=== PATIENT | male | born 1945 | race Caucasian/White ===

== ENCOUNTER 2016-11-12 14:49 | Emergency (ER) | payer MEDICARE, OTHER ==
[~2016-11-12] VITALS: Ht 175.3 cm; Wt 83.5 kg
[~2016-11-12 14:49] MED LIST: ASPI325T4 PO; ASPI81TA2 PO; ATOR20TA58 PO; DEXT5TAB27 PO; LISI-338 PO; METO25TA9 PO; TICA90TA PO
[2016-11-12 15:09] VITALS: BP 115/72
[2016-11-12] MEDS ORDERED: CEPH-264 PO (15:51)
--- NOTE | 2016-11-12 15:52 | PHYS DOC ---
Past Medical History Past Medical History: Arthritis, [place], Stroke Past Surgical History: Angioplasty, Appendectomy, Tonsillectomy, Other Additional Past Surgical Histo: 3 coronary stents, sinus surgery, cataract Smoking: Quit Greater Than 1 Year Alcohol Use: Rarely Drug Use: None Adult General Chief Complaint Chief Complaint: FACE PROBLEM HPI HPI Patient is a 70 year old male who presents with abscess near the left eye for 3 -4 days. He saw his PCP yesterday and was prescribed Bactrim. He has taken 3 doses of the antibiotic. He awoke today and noticed swelling below the left eye. He called his doctor and was told to come to the emergency department to have imaging done. He denies any change in his vision, drainage from the wound or eye, or pain with eye movements. His PCP is Dr. Bran. Review of Systems Review of Systems Constitutional: Denies fever or chills. [] Eyes: Denies change in visual acuity, redness, or eye pain. Denies eye drainage. Reports swelling below the left eye. Musculoskeletal: Denies back pain or joint pain. [] Integument: Denies rash or skin lesions. Reports abscess lateral to the left eye with redness and swelling below the left eye. Neurologic: Denies headache, focal weakness or sensory changes. [] Allergies Allergies Allergies Coded Allergies Type Severity Reaction Last Updated Verified No Known Drug Allergies 06/26/14 No Physical Exam Physical Exam Constitutional: Well developed, well nourished, no acute distress, non-toxic appearance. [] HENT: Normocephalic, atraumatic, bilateral external ears normal, oropharynx moist, no oral exudates, nose normal. [] Eyes: PERRLA, EOMI, conjunctiva normal, no discharge. There is mild erythema and edema below the left lower eyelid that appears to be dependent edema. There is no warmth, induration, or tenderness with palpation. No pain with eye movement. Neck: Normal range of motion, no tenderness, supple, no stridor. [] Skin: Warm, dry. There is a 2cm indurated abscess without spontaneous drainage with mild surrounding erythema and tenderness. Neurologic: Alert and oriented X 3, normal motor function, normal sensory function, no focal deficits noted. [] Psychologic: Affect normal, judgement normal, mood normal. [] Current Patient Data Vital Signs Vital Signs Date Time Temp Pulse Resp B/P Pulse Ox O2 Delivery O2 Flow Rate FiO2 11/12/16 15:09 98.0 74 18 96 Room Air 98.0 EKG EKG [] Radiology/Procedures Radiology/Procedures [] Course & Med Decision Making Course & Med Decision Making Pertinent Labs and Imaging studies reviewed. (See chart for details) Patient presents with abscess lateral to the left eye for 3-4 days. He was sent to the emergency department by his primary care doctor with suspicion for orbital cellulitis due to swelling that developed under the eye. His doctor referred him without examination today. On my exam, the swelling appears to be a dependent edema below the left lower eyelid. There is no change in vision. Patient does not have any pain with movement of the eye. The patient was also seen and examined by Dr. Sahni, who agrees with evaluation. The patient is already taking Bactrim. We will add Keflex in addition to the Bactrim. He is instructed to apply warm compresses. Follow-up with PCP in 2 days. Strict return precautions were discussed. Patient verbalizes understanding and agrees with plan. Dragon Disclaimer Dragon Disclaimer This electronic medical record was generated, in whole or in part, using a voice recognition dictation system. Departure Departure Impression: Primary Impression: Facial abscess Disposition: 01 HOME, SELF-CARE Condition: STABLE Referrals: CHARLES BRAN MD (PCP) Patient Instructions: Abscess, [id number] Additional Instructions: Please apply warm compresses to your wound. Please continue taking the antibiotic prescribed by your doctor and begin taking the antibiotic prescribed today as well. Please follow up with your doctor for recheck of your wound in 2 days. Return to the emergency department if you have pain with movement of your eye, change in your vision, worsening of your wound, or other new or concerning symptoms. Scripts Cephalexin (Keflex)500 Mg Capsule1 Cap PO BID #20 CAP Prov:KIP OLIVEIRA 11/12/16 KIP OLIVEIRA Nov 12, 2016 15:52
== END 2016-11-12 15:58 | disposition home or self-care (01) ==
LOC: ER 14:49
DX: L02.01 Cutaneous abscess of face (principal); F17.200 Nicotine dependence, unspecified, uncomplicated; I25.2 Old myocardial infarction; M19.90 Unspecified osteoarthritis, unspecified site; Z86.73 Personal history of transient ischemic attack (TIA), and cerebral infarction without residual deficits; Z98.49 Cataract extraction status, unspecified eye; Z95.5 Presence of coronary angioplasty implant and graft; Z90.49 Acquired absence of other specified parts of digestive tract
CPT/HCPCS: 99283

== ENCOUNTER → 2017-01-26 | Outpatient (CLI) | payer MEDICARE, OTHER ==
[~2017-01-26] MED LIST changes: +CEPH-264 PO
--- NOTE | 2017-01-26 11:37 | CARD ---
APPROVED REPORT EXAM: Two-dimensional and M-mode echocardiogram with Doppler and color Doppler. Other Information Quality : GoodHR: 68bpm Rhythm : NSR INDICATION ST Elevation (STEMI) myocardial infarction of unspecified site RISK FACTORS Hyperlipidemia Family History Smoking 2D DIMENSIONS RVDd3.2 (2.9-3.5cm)Left Atrium(2D)3.8 (1.6-4.0cm) IVSd1.0 (0.7-1.1cm)Aortic Root(2D)2.9 (2.0-3.7cm) LVDd3.9 (3.9-5.9cm)LVOT Diameter2.2 (1.8-2.4cm) PWd1.0 (0.7-1.1cm)LVDs2.9 (2.5-4.0cm) FS (%) 26.0 %SV35.0 ml LVEF(%)51.7 (>50%) Aortic Valve AoV Peak Min.109.0cm/sAoV VTI22.3cm AO Peak GR.4.8mmHgLVOT Peak Min.100.8cm/s AO Mean GR.2mmHgAVA (VMAX)3.38cm2 Mitral Valve MV E Beuxhcyt90.2cm/sMV E Peak Gr.2mmHg MV DECEL [id number] A Kgzgwivk73.0cm/s MV E Mean Gr.1mmHgE/A Ratio0.8 MV A [id number] Pulmonary Valve PV Peak Oaxggpwf12.6cm/s Pulmonary Vein S1 Ktprwiwf41.1cm/sD2 Upuqkhue49.5cm/s PVa [id number] LEFT VENTRICLE The left ventricle is normal size. There is normal left ventricular wall thickness. The left ventricu lar systolic function is normal. The Ejection Fraction is 50-55%. There is normal LV segmental wall m otion. Transmitral Doppler flow pattern is Grade I-abnormal relaxation pattern. RIGHT VENTRICLE The right ventricle is normal size. There is normal right ventricular wall thickness. The right ventr icular systolic function is normal. ATRIA The left atrium size is normal. The right atrium size is normal. The interatrial septum is intact wit h no evidence for an atrial septal defect or patent foramen ovale as noted on 2-D or Doppler imaging. AORTIC VALVE The aortic valve is mildly thickened. The aortic valve is trileaflet. Doppler and Color Flow revealed no significant aortic regurgitation. There is no significant aortic valvular stenosis. MITRAL VALVE The mitral valve leaflets are thickened. There is no evidence of mitral valve prolapse. There is no m itral valve stenosis. Doppler and Color Flow revealed no mitral valve regurgitation noted. TRICUSPID VALVE The tricuspid valve is normal in structure and function. Doppler and Color Flow revealed no tricuspid valve regurgitation noted. PULMONIC VALVE Doppler and Color Flow revealed mild pulmonic valvular regurgitation. There is no pulmonic valvular s tenosis. GREAT VESSELS The aortic root is normal in size. The ascending aorta is normal in size. The pulmonary artery is nor mal. The IVC is normal in size and collapses >50% with inspiration. PERICARDIAL EFFUSION There is no evidence of significant pericardial effusion. Critical Notification Critical Value: No <Conclusion> The left ventricular systolic function is normal. The Ejection Fraction is 50-55%. There is normal LV segmental wall motion. Transmitral Doppler flow pattern is Grade I-abnormal relaxation pattern. There is no evidence of significant pericardial effusion.
== END | disposition home or self-care (01) ==
LOC: ECHO 09:23
PROVIDERS: ATTEND Internal Medicine Cardiovascular Disease
DX: I21.3 ST elevation (STEMI) myocardial infarction of unspecified site (principal); I37.1 Nonrheumatic pulmonary valve insufficiency
CPT/HCPCS: 93306

== ENCOUNTER 2017-02-01 21:36 | Inpatient (IN) | payer MEDICARE, OTHER ==
[~2017-02-01] VITALS: Ht 175.3 cm; Wt 79.1 kg
[2017-02-01] MEDS ORDERED: methylPREDNISolone SOD SUCC PF 125 MG/2 ML VIAL. IV ONE (22:00)
[2017-02-01] MEDS ORDERED: IPRATRPIUM/ALBUTEROL 0.5/2.5MG 3 ML NEBU. NEB ONE (22:00)
--- NOTE | 2017-02-01 22:01 | PHYS DOC ---
Past Medical History Past Medical History: Arthritis, [place], Stroke Past Surgical History: Angioplasty, Appendectomy, Tonsillectomy, Other Additional Past Surgical Histo: 3 coronary stents, sinus surgery, cataract Alcohol Use: Rarely Drug Use: None Adult General Chief Complaint Chief Complaint: SHORTNESS OF BREATH HPI HPI 71-year-old male presenting to the emergency department with a productive cough congestion chills and worsening shortness of breath over the past 4 days. He is been trying qmbg-pgc-[id number] medications without relief. Location lungs. Duration intermittent. No alleviating factors. He has a history of coronary artery disease. He was hypoxic in triage and placed on nasal cannula. Review of systems is negative for abdominal pain nausea vomiting diaphoresis or chest pain. All other review of systems is negative unless otherwise noted in history of present illness. Review of Systems Review of Systems SEE ABOVE. Current Medications Current Medications Current Medications Medications (Trade) Dose Ordered Sig/Escobar Start Time Stop Time Status Last Admin Dose Admin Acetaminophen (Tylenol) 650 mg 1X ONCE 02/01/17 23:15 02/01/17 23:16 DC 02/01/17 23:15 650 MG Albuterol/ Ipratropium (Duoneb) 3 ml 1X ONCE 02/01/17 22:00 02/01/17 22:01 DC 02/01/17 22:05 3 ML Azithromycin 250 ml @ 250 mls/hr 1X ONCE 02/01/17 23:30 02/02/17 00:29 02/01/17 23:17 250 MLS/HR Ceftriaxone Sodium (Rocephin 1gm Ivpb For Omni) 50 ml @ 100 mls/hr 1X ONCE 02/01/17 23:00 02/01/17 23:29 DC 02/01/17 23:16 100 MLS/HR Methylprednisolone Sodium Succinate 125 mg 125 mg 1X ONCE 02/01/17 22:00 02/01/17 22:01 DC 02/01/17 23:16 125 MG Oseltamivir Phosphate (Tamiflu) 75 mg 1X ONCE 02/01/17 23:30 02/01/17 23:31 UNV Sodium Chloride 1,000 ml @ 1,000 mls/hr 1X ONCE 02/01/17 22:45 02/01/17 23:44 02/01/17 23:17 1,000 MLS/HR Allergies Allergies Allergies Coded Allergies Type Severity Reaction Last Updated Verified No Known Drug Allergies 06/26/14 No Physical Exam Physical Exam Constitutional: Well developed, well nourished, pt has mildly increased work of breathing, non-toxic appearance. HENT: Normocephalic, atraumatic, bilateral external ears normal, oropharynx moist, no oral exudates, nose normal. [] Eyes: PERRLA, EOMI, conjunctiva normal, no discharge. [] Neck: Normal range of motion, no tenderness, supple, no stridor. Cardiovascular:Heart rate regular rhythm, no murmur [] Lungs & Thorax: Patient has wheezing on the left more than the right. Abdomen: Bowel sounds normal, soft, no tenderness, no masses, no pulsatile masses. Skin: Warm, dry, no erythema, no rash. [] Back: No tenderness, no CVA tenderness. Extremities: No tenderness, no cyanosis, no clubbing, ROM intact, no edema. [] Neurologic: Alert and oriented X 3, normal motor function, normal sensory function, no focal deficits noted. [] Psychologic: Affect normal, judgement normal, mood normal. Current Patient Data Vital Signs Vital Signs Date Time Temp Pulse Resp B/P Pulse Ox O2 Delivery O2 Flow Rate FiO2 02/01/17 22:05 92 Nasal Cannula 2.0 02/01/17 21:50 100.5 129 22 148/71 100.5 Lab Values Laboratory Tests Test 02/01/17 22:05 02/01/17 23:01 White Blood Count 14.0x10^3/uL (4.0-11.0) H Red Blood Count 4.65x10^6/uL (4.30-5.70) Hemoglobin 13.6g/dL (13.0-17.5) Hematocrit 40.7% (39.0-53.0) Mean Corpuscular Volume 88fL (79-100) Mean Corpuscular Hemoglobin 29pg (25-35) Mean Corpuscular Hemoglobin Concent 33g/dL (31-37) Red Cell Distribution Width 14.0% (11.5-14.5) Platelet Count 215x10^3/uL (140-400) Neutrophils (%) (Auto) 91% (31-73) H Lymphocytes (%) (Auto) 4% (24-48) L Monocytes (%) (Auto) 4% (0-9) Eosinophils (%) (Auto) 0% (0-3) Basophils (%) (Auto) 0% (0-3) Neutrophils # (Auto) 12.7x10^3uL (1.8-7.7) H Lymphocytes # (Auto) 0.6x10^3/uL (1.0-4.8) L Monocytes # (Auto) 0.6x10^3/uL (0.0-1.1) Eosinophils # (Auto) 0.1x10^3/uL (0.0-0.7) Basophils # (Auto) 0.0x10^3/uL (0.0-0.2) Segmented Neutrophils % 74% (35-66) H Band Neutrophils % 22% (0-9) H Lymphocytes % 1% (24-48) L Monocytes % 3% (0-10) Toxic Vacuolation Present Platelet Estimate Adequate (ADEQUATE) Sodium Level 136mmol/L (136-145) Potassium Level 3.9mmol/L (3.5-5.1) Chloride Level 101mmol/L (98-107) Carbon Dioxide Level 25mmol/L (21-32) Anion Gap 10 (6-14) Blood Urea Nitrogen 10mg/dL (8-26) Creatinine 0.9mg/dL (0.7-1.3) Estimated GFR (Cockcroft-Gault) 83.4 Glucose Level 131mg/dL (70-99) H Lactic Acid Level 1.1mmol/L (0.4-2.0) Calcium Level 8.4mg/dL (8.5-10.1) L Total Bilirubin 0.6mg/dL (0.2-1.0) Direct Bilirubin 0.1mg/dL (0.0-0.2) Aspartate Amino Transferase (AST) 22U/L (15-37) Alanine Aminotransferase (ALT) 20U/L (16-63) Alkaline Phosphatase 72U/L (46-116) Troponin I Quantitative < 0.017ng/mL (0.000-0.055) JV-Gwk-S-Type Natriuretic Peptide 72pg/mL (0-124) Total Protein 7.5g/dL (6.4-8.2) Albumin 3.5g/dL (3.4-5.0) Lipase 92U/L (73-393) Influenza Type A Antigen Positive (NEGATIVE) Influenza Type B Antigen Negative (NEGATIVE) Laboratory Tests 02/01/17 22:05 Laboratory Tests 02/01/17 22:05 EKG EKG [] Radiology/Procedures Radiology/Procedures Chest x-ray reviewed by myself compared to previous on 07/05 shows no obvious infiltrate or pneumothorax. Course & Med Decision Making Course & Med Decision Making Pertinent Labs and Imaging studies reviewed. (See chart for details) [] 81-year-old gentleman presenting to the emergency department with fevers chills and cough, diagnosed with influenza. He was hypoxic and tachicardic in our emergency department. He was given nebulizer which improved his symptoms mildly however he remained hypoxic. I treated him with antibiotics, steroids and influenza here in the emergency department and subsequent admitted to him to our hospitalist service Doctor Mustapha excepted the patient at approximately 11:30 at which point the patient's care was transferred. Dragon Disclaimer Dragon Disclaimer This electronic medical record was generated, in whole or in part, using a voice recognition dictation system. Departure Departure Impression: Primary Impression: Influenza A Additional Impressions: Hypoxia Tachycardia Disposition: ADMITTED INPATIENT Admitting Physician: Denita Luciano Condition: STABLE Referrals: CHARLES BRAN MD (PCP) Problem Qualifiers ASHOK NATHAN MD Feb 01, 2017 22:01
[2017-02-01 22:15] LABS: BASO % 0 % (0-3); EOS % 0 % (0-3); HEMATOCRIT 40.7 % (39.0-53.0); HEMOGLOBIN 13.6 g/dL (13.0-17.5); LYMPH # 0.6 x10^3/uL (1.0-4.8); LYMPH % 4 % (24-48); MEAN CORPUSCULAR HEMOGLOBIN 29 pg (25-35); MEAN CORPUSCULAR HGB CONC 33 g/dL (31-37); MEAN CORPUSCULAR VOLUME 88 fL (79-100); MONO % 4 % (0-9); NEUT % 91 % (31-73); PLATELET COUNT 215 x10^3/uL (140-400); RED BLOOD COUNT 4.65 x10^6/uL (4.30-5.70)
[2017-02-01 22:26] LABS: CALCIUM 8.4 mg/dL (8.5-10.1); CREATININE 0.9 mg/dL (0.7-1.3); GFR 83.4; POTASSIUM 3.9 mmol/L (3.5-5.1)
[2017-02-01 22:32] LABS: ALBUMIN 3.5 g/dL (3.4-5.0); DIRECT BILIRUBIN 0.1 mg/dL (0.0-0.2); TOTAL BILIRUBIN 0.6 mg/dL (0.2-1.0); TOTAL PROTEIN 7.5 g/dL (6.4-8.2)
[2017-02-01] MEDS ORDERED: IV NORMAL SALINE 1000ML BAG 1,000 ML IV ONE (22:45)
[2017-02-01 22:57] LABS: PLT ESTIMATE ADEQUATE (ADEQUATE)
[2017-02-01 22:58] LABS: TOXIC VACUOLATION PRESENT
[2017-02-01] MEDS ORDERED: CEFTRIAXONE 1GM IVPB FOR OMNI 50 ML IV ONE (23:00)
[2017-02-01] MEDS ORDERED: ACETAMINOPHEN 325 MG TABLET. PO ONE (23:15)
[2017-02-01] MEDS: AZITHRMYCN 500MG IVPB FOR OMNI 250 ML IV ONE ×2 (23:17→23:30)
[2017-02-01 23:31] LABS: OBC FLU VALID
[2017-02-01] MEDS ORDERED: OSELTAMIVIR 75 MG CAPSULE PO ONE (23:45)
--- NOTE | 2017-02-01 23:59 | ACF ---
Admission Forms Criteria TELEMETRY CARE Telemetry Admission Guidelines (Place 'X' for any and all applicable criteria): Admission to telemetry [A] may be indicated for ANY ONE of the following(1)(2)(3 )(4)(5): [X]I. Cardiac disease, including ANY ONE of the following (9)(10)(11)(12)(13 ): [ ]a) Postacute MO [ ]b) Low-risk patients with ST-segment elevation MO who have undergone successful percutaneous coronary intervention [ ]c) Unstable angina [ ]d) Suspected MO (until it is ruled out) [ ]e) Post cardiac surgery (first 48 to 72 hours unless complications occur) [X]f) Acute arrhythmias (including significant tachycardia or bradycardia) [B] [ ]g) Firing of an implantable cardioverter defibrillator [C] [ ]h) Suspected pacemaker or implantable cardioverter defibrillator malfunction (10) [ ]i) New administration or adjustment of an antiarrhythmic drug [D ] [ ]j) Child admitted for acute congestive heart failure [ ]j) Long QT syndrome [ ]k) Advanced heart block (eg, second-degree Mobitz type II, third- degree heart block) [ ]l) Acute myocarditis or pericarditis [ ]m) Short-term (ambulatory or inpatient) monitoring after a cardiac procedure as indicated by ANY ONE of the following [E]: [ ]i) Electrophysiologic studies [ ]ii) Percutaneous coronary intervention with stent placement [ ]iii) Pacemaker placement with cardiac conduction defect [ ]iv) Implantable cardiac defibrillator placement [ ]II. Drug overdose or poisoning with substance that causes arrhythmias or QT prolongation (eg, phenothiazines, sympathomimetic agents, cyclic antidepressants, digitalis, antiarrhythmic drugs)(15) [ ]III. Short-term (ambulatory or inpatient) monitoring after therapeutic or diagnostic procedure requiring conscious sedation or anesthesia (eg, endoscopy, elective cardioversion) [ ]IV. Acute cerebrovascular even[F](18) [ ]V. Massive blood transfusion (eg, at least 10 units of packed red blood cells in 24 hours) [ ]. Variceal bleeding after endoscopy, sclerotherapy, or IV vasopressin [ ]VII. Uncorrected electrolyte abnormalities associated with an increased risk of dangerous arrhythmia [G]; examples include [ ]a) Hyperkalemia with attributable ECG changes [ ]b) Potassium greater than 6.5 mmol/L (mEq/L) in a patient without history of chronic renal disease [ ]c) Prolonged QT attributed to hypokalemia, hypomagnesemia, or hypocalcemia [ ]VIII.Unexplained syncope or other neurologic event suspected of being due to arrhythmia due to a finding that increases risk; examples include(19)(20)(21): [ ]a) High-risk ECG findings (eg, bifascicular block, bradycardia, abnormal QT interval, ventricular pre- excitation) [ ]b) History of previous syncope due to arrhythmia [ ]c) Abnormal ventricular function (eg, reduced ejection fraction ) [ ]d) Exertional or supine syncope [ ]e) Concerning syncope characteristics (eg, sudden loss of consciousness without prodrome) [ ]f) Family history of sudden [ ]g) Use of arrhythmogenic medication [ ]h) Suspected cardiac ischemia [ ]i) Known channelopathy (eg, long QT syndrome, Brugada syndrome, or catecholaminergic paroxysmal ventricular tachycardia) [ ]j) Known structural heart disease (eg, hypertrophic cardiomyopathy , severe valvular disease) [ ]k) Palpitations preceding syncope The original [employer] content created by [employer] has been revised. The portions of the content which have been revised are identified through the use of italic text or in bold, and [employer] has neither reviewed nor approved the modified material. All other unmodified content is copyright [employer]. Please see references footnoted in the original [employer] edition 2016 Admission Criteria Met?: Yes PEPPER LAMA Feb 01, 2017 23:59
[2017-02-02] MEDS ORDERED: ONDANSETRON PF 4 MG/2 ML VIAL. IV PRN (00:15)
[2017-02-02] MEDS ORDERED: MORPHINE SULFATE 2 MG/ML DISP.SYRIN. IV PRN (00:15)
[2017-02-02 00:30] VITALS: BP 128/69
[2017-02-02 03:00] VITALS: BP 99/44
[2017-02-02] MEDS ORDERED: ACETAMINOPHEN 325 MG TABLET. PO PRN (03:00)
--- NOTE | 2017-02-02 06:15 | EKG ---
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
[2017-02-02 07:30] VITALS: BP 121/75
[2017-02-02] MEDS: IPRATRPIUM/ALBUTEROL 0.5/2.5MG 3 ML NEBU. NEB SCH ×2 (08:12→11:39)
[2017-02-02 08:58] VITALS: BP 121/75
[2017-02-02 08:59] VITALS: BP 121/75
[2017-02-02] MEDS ORDERED: OSELTAMIVIR 75 MG CAPSULE PO SCH (09:00)
--- NOTE | 2017-02-02 09:03 | RAD ---
AP portable chest radiograph 02/01/2017 Clinical History: Chest pain, shortness of breath and chills. An AP portable erect digital radiograph of the chest was obtained. Comparison study is dated 07/05/2014. The cardiac silhouette is normal in size. The thoracic aorta is mildly tortuous. Right basilar subsegmental atelectasis and/or infiltrate, left greater than right is seen. No pneumothorax or pleural effusion is seen. There is diffuse osteopenia of the visualized bony structures. Degenerative changes are seen involving the thoracic spine and both shoulders. Impression: Bibasilar subsegmental atelectasis and/or infiltrate.
[2017-02-02 10:36] VITALS: BP 136/82
--- NOTE | 2017-02-02 13:52 | SSS ---
ADMIT DATE: 02/02/2017 CHIEF COMPLAINT: Cough, weakness, and dizziness. HISTORY OF PRESENT ILLNESS: The patient is a pleasant elderly male who basically presented with prodrome of viral symptoms. He has been weak. He is coughing. He is dehydrated. He was admitted overnight for fluids. He was tested positive for influenza A. We started him on Tamiflu pack. This morning, he is doing better. He wants to go home. We plan to discharge. PAST MEDICAL HISTORY: Hyperlipidemia, hypertension, and anticoagulation. ALLERGIES: None. FAMILY HISTORY: Hypertension. SOCIAL HISTORY: Does not drink, smoke, or take drugs. MEDICATIONS: Reviewed. Please refer to the MRAD. REVIEW OF SYSTEMS: GENERAL: He complains of weakness. SKIN: No bruising, hair changes or rashes. EYES: No blurred, double, or loss of vision. NOSE AND THROAT: No history of nosebleeds, hoarseness, or sore throat. HEART: No history of palpitations, chest pain, or shortness of breath on exertion. LUNGS: He complains of cough. No hemoptysis, wheezing, or shortness of breath. GASTROINTESTINAL: Denies changes in appetite, nausea, vomiting, diarrhea, or constipation. GENITOURINARY: No history of frequency, urgency, hesitancy or nocturia. NEUROLOGIC: Denies history of numbness, tingling, tremor or weakness. PSYCHIATRIC: No history of panic, anxiety or depression. ENDOCRINE: No history of heat or cold intolerance, polyuria or polydipsia. EXTREMITIES: Denies muscle weakness, joint pain, pain on walking or stiffness. PHYSICAL EXAMINATION: VITAL SIGNS: Temperature afebrile, pulse 68, respirations 18, and blood pressure 144/90. GENERAL: He is alert, cooperative. HEART: Normal S1, S2. LUNGS: Clear. ABDOMEN: Soft, positive bowel sounds. EXTREMITIES: No edema. SKIN: No rashes. ENDOCRINE: No thyromegaly. LYMPHATICS: No cervical nodes. HEMATOPOIETIC: No bruising. LABORATORY DATA: White count is 14, hemoglobin 13, and platelets 215. Electrolytes are normal other than glucose of 131. His lactic acid level is normal at 1.1. Influenza testing was positive for influenza A. ASSESSMENT AND PLAN: Resolving influenza A. We will go ahead and send the patient home on Tamiflu pack and resume his home medications. DISPOSITION: Home. ACTIVITY: As tolerated. DIET: Low sodium. MEDICATIONS: Please see the MRAD. TOTAL TIME: 31 minutes. MISSY SIDDIQUI DO DR: TONO/sanjay JOB#: [id number] / [id number]
== END 2017-02-02 12:35 | disposition home or self-care (01) | DRG 189 ==
LOC: ER 21:36 → 5 NORTH 23:34 → OBSVTOIN 23:34
PROVIDERS: ADMIT Internal Medicine; ATTEND Internal Medicine
DX: J96.00 Acute respiratory failure, unspecified whether with hypoxia or hypercapnia (principal); R65.10 Systemic inflammatory response syndrome (SIRS) of non-infectious origin without acute organ dysfunction; J11.1 Influenza due to unidentified influenza virus with other respiratory manifestations; M19.90 Unspecified osteoarthritis, unspecified site; E78.5 Hyperlipidemia, unspecified; E86.0 Dehydration; I10 Essential (primary) hypertension; I25.10 Atherosclerotic heart disease of native coronary artery without angina pectoris; Z82.49 Family history of ischemic heart disease and other diseases of the circulatory system; Z86.73 Personal history of transient ischemic attack (TIA), and cerebral infarction without residual deficits; Z95.5 Presence of coronary angioplasty implant and graft; Z90.49 Acquired absence of other specified parts of digestive tract; I25.2 Old myocardial infarction
CPT/HCPCS: 36415; 71010; 80048; 80076; 83605; 83690; 83880; 84484; 85007; 85027; 87040; 87804; 93005; 94250; 94640; 94760; 96365; 96375; J0456; J0690; J2930; J7030; J7620; 99285-25

== ENCOUNTER 2017-02-03 23:31 | Emergency (ER) | payer MEDICARE, OTHER ==
[~2017-02-03] VITALS: Ht 175.3 cm; Wt 78.9 kg
[2017-02-04 00:43] LABS: BASO % 0 % (0-3); EOS % 0 % (0-3); HEMATOCRIT 39.9 % (39.0-53.0); HEMOGLOBIN 13.5 g/dL (13.0-17.5); LYMPH % 15 % (24-48); MEAN CORPUSCULAR HEMOGLOBIN 30 pg (25-35); MEAN CORPUSCULAR HGB CONC 34 g/dL (31-37); MEAN CORPUSCULAR VOLUME 87 fL (79-100); MONO % 10 % (0-9); NEUT % 75 % (31-73); PLATELET COUNT 269 x10^3/uL (140-400); RED BLOOD COUNT 4.56 x10^6/uL (4.30-5.70); RED CELL DISTRIBUTION WIDTH 13.8 % (11.5-14.5); WHITE BLOOD COUNT 13.5 x10^3/uL (4.0-11.0)
[2017-02-04 00:55] LABS: CALCIUM 8.5 mg/dL (8.5-10.1); GFR 73.9; POTASSIUM 3.9 mmol/L (3.5-5.1)
[2017-02-04 01:08] LABS: CKMB INDEX 1.8 % (0-4); CKMB MASS 2.8 ng/mL (0.0-3.6)
[2017-02-04] MEDS ORDERED: PROMETH/CODEINE 6.25/10MG 5 ML SYRUP. PO ONE (01:15)
[2017-02-04] MEDS ORDERED: ONDANSETRON PF 4 MG/2 ML VIAL. IV ONE (01:15)
[2017-02-04] MEDS ORDERED: ACETAMINOPHEN 325 MG TABLET. PO ONE (01:15)
[2017-02-04] MEDS ORDERED: MORPHINE SULFATE 4 MG/ML DISP.SYRIN. IV ONE (01:15)
[2017-02-04] MEDS ORDERED: HYDR-2678 PO (01:37)
[2017-02-04] MEDS ORDERED: PROM5SYR2 PO (01:37)
--- NOTE | 2017-02-04 01:37 | PHYS DOC ---
Past Medical History Past Medical History: Arthritis, [place], Stroke Past Surgical History: Angioplasty, Appendectomy, Tonsillectomy, Other Additional Past Surgical Histo: 3 coronary stents, sinus surgery, cataract Alcohol Use: Rarely Drug Use: None Adult General Chief Complaint Chief Complaint: CHEST PAIN HPI HPI Patient is a 71 year old gentleman who presents here today complaining of left- sided sharp chest pain with an aching sensation that occurs whenever he coughs. Patient reports that he was diagnosed with influenza A on Thursday in the emergency department and was sent home on Tamiflu and has medication at home to help him with the pain. Patient reports that the pain in his chest started earlier this evening. The pain is there only when he coughs. Patient is complaining of headache and congestion as well. Patient has a history significant for coronary artery disease. Patient has no hypertension diabetes CHF COPD liver longer kidney problems. According to the patient's he had a stent placed in June 2014. Shortly thereafter he had a stroke. Patient is on Remicade currently for rheumatoid arthritis. Patient is not allergic to any medications. Patient reports she's had some tactile fevers at home with no shakes or chills. Patient denies any rash. Patient reports he feels short of breath with exertion. Patient denies any sore throat. Patient reports she's had a nonproductive cough. Patient reports he has pleuritic-type chest pain whenever he coughs or takes a really deep breath in. Patient denies any nausea vomiting or diarrhea. Patient has any dysuria frequency or urgency. Patient complains of of generalized weakness. Patient's physical exam was remarkable for tenderness to palpation to his left anterior chest wall. Patient's reproducible tenderness in his left anterior chest wall whenever he takes a deep breath in or coughs while in the ER. Patient 's pulse ox has remained between 97-99% while in the ER on room air. Patient is not tachypneic. Patient appears comfortable laying in bed. She does lungs are clear without any wheezing rales or rhonchi. Patient's abdomen was soft nontender no rebound or guarding. Patient's workup in the ER was unremarkable. Patient patient had a chest x-ray which revealed no pneumonia which is what the patient was concerned about. Patient's labs were unremarkable did not reveal any elevation in his troponin, renal function, or electrolyte abnormalities. Labs were discussed with the patient. A/P #1 influenza A with pleuritic chest pain. Patient's chest pain is very atypical for cardiac etiology. Patient's EKG as well as troponin were within normal limits. Patient was given Phenergan with codeine as well as [place] to assist with his pain and discomfort. Patient was instructed to follow-up with his doctor within the next 1-2 days for reevaluation if his discomfort continues. Patient is extremely low risk for cardiac etiology of his chest pain. I do not think that the patient would benefit from inpatient hospitalization at this time as the patient does have influenza, he appears to be hemodynamically stable, he is pulse oxing well, his chest x-ray is clear, and he is on Tamiflu currently. Review of Systems Review of Systems [] Eyes: Denies change in visual acuity, redness, or eye pain [] All other review systems are negative except as documented in the history of present illness portion. Current Medications Current Medications Current Medications Medications (Trade) Dose Ordered Sig/Escobar Start Time Stop Time Status Last Admin Dose Admin Acetaminophen (Tylenol) 650 mg 1X ONCE 02/04/17 01:15 02/04/17 01:16 DC 02/04/17 01:12 650 MG Morphine Sulfate 4 mg 1X ONCE 02/04/17 01:15 02/04/17 01:16 DC 02/04/17 01:18 4 MG Ondansetron HCl (Zofran) 4 mg 1X ONCE 02/04/17 01:15 02/04/17 01:16 DC 02/04/17 01:12 4 MG Promethazine HCl/ Codeine (Phenergan With Codeine) 10 ml 1X ONCE 02/04/17 01:15 02/04/17 01:16 DC 02/04/17 01:12 10 ML Allergies Allergies Allergies Coded Allergies Type Severity Reaction Last Updated Verified No Known Drug Allergies 06/26/14 No Physical Exam Physical Exam Constitutional: Well developed, well nourished, no acute distress, non-toxic appearance. [] HENT: Normocephalic, atraumatic, bilateral external ears normal, oropharynx moist, no oral exudates, nose normal. [] Eyes: PERRLA, EOMI, conjunctiva normal, no discharge. [] Neck: Normal range of motion, no tenderness, supple, no stridor. [] Cardiovascular:Heart rate regular rhythm Lungs & Thorax: Bilateral breath sounds clear to auscultation [] Abdomen: Bowel sounds normal, soft, no tenderness, no masses, no pulsatile masses. [] Skin: Warm, dry, no erythema, no rash. [] Back: No tenderness, no CVA tenderness. [] Extremities: No tenderness, no cyanosis, no clubbing, ROM intact, no edema. [] Neurologic: Alert and oriented X 3, normal motor function Psychologic: Affect normal, judgement normal, mood normal. [] Current Patient Data Vital Signs Vital Signs Date Time Temp Pulse Resp B/P Pulse Ox O2 Delivery O2 Flow Rate FiO2 02/04/17 01:50 79 20 118/62 94 Room Air 02/03/17 23:39 98.3 98.3 Lab Values Laboratory Tests Test 02/04/17 00:00 White Blood Count 13.5x10^3/uL (4.0-11.0) H Red Blood Count 4.56x10^6/uL (4.30-5.70) Hemoglobin 13.5g/dL (13.0-17.5) Hematocrit 39.9% (39.0-53.0) Mean Corpuscular Volume 87fL (79-100) Mean Corpuscular Hemoglobin 30pg (25-35) Mean Corpuscular Hemoglobin Concent 34g/dL (31-37) Red Cell Distribution Width 13.8% (11.5-14.5) Platelet Count 269x10^3/uL (140-400) Neutrophils (%) (Auto) 75% (31-73) H Lymphocytes (%) (Auto) 15% (24-48) L Monocytes (%) (Auto) 10% (0-9) H Eosinophils (%) (Auto) 0% (0-3) Basophils (%) (Auto) 0% (0-3) Neutrophils # (Auto) 10.2x10^3uL (1.8-7.7) H Lymphocytes # (Auto) 2.0x10^3/uL (1.0-4.8) Monocytes # (Auto) 1.3x10^3/uL (0.0-1.1) H Eosinophils # (Auto) 0.0x10^3/uL (0.0-0.7) Basophils # (Auto) 0.0x10^3/uL (0.0-0.2) Sodium Level 141mmol/L (136-145) Potassium Level 3.9mmol/L (3.5-5.1) Chloride Level 101mmol/L (98-107) Carbon Dioxide Level 28mmol/L (21-32) Anion Gap 12 (6-14) Blood Urea Nitrogen 15mg/dL (8-26) Creatinine 1.0mg/dL (0.7-1.3) Estimated GFR (Cockcroft-Gault) 73.9 Glucose Level 91mg/dL (70-99) Calcium Level 8.5mg/dL (8.5-10.1) Creatine Kinase 158U/L (39-308) Creatine Kinase MB (Mass) 2.8ng/mL (0.0-3.6) Creatine Kinase MB Relative Index 1.8% (0-4) Troponin I Quantitative < 0.017ng/mL (0.000-0.055) RJ-Ksa-B-Type Natriuretic Peptide 279pg/mL (0-124) H Laboratory Tests 02/04/17 00:00 Laboratory Tests 02/04/17 00:00 EKG EKG [] Radiology/Procedures Radiology/Procedures [] Course & Med Decision Making Course & Med Decision Making Pertinent Labs and Imaging studies reviewed. (See chart for details) [] Dragon Disclaimer Dragon Disclaimer This electronic medical record was generated, in whole or in part, using a voice recognition dictation system. Departure Departure Impression: Primary Impression: Influenza A Additional Impressions: Chest wall pain Cough Disposition: 01 HOME, SELF-CARE Condition: IMPROVED Referrals: CHARLES BRAN MD (PCP) Patient Instructions: Chest Wall Pain, Influenza A (H1N1) Scripts Promethazine HCl/Codeine (Prometh-Codein 6.25-10 mg/5 ml)5 Ml Syrup10 Ml PO Q6HRS PRN COUGH #120 Prov:VENKATESH SPENCE MD 02/04/17 Hydrocodone/Acetaminophen (Lortab 5-325 mg Tablet)1 Each Tablet1 Tab PO PRN Q6HRS PRN PAIN #10 TAB Prov:VENKATESH SPENCE MD 02/04/17 Problem Qualifiers VENKATESH SPENCE MD Feb 04, 2017 01:37
[2017-02-04 01:50] VITALS: BP 118/62
--- NOTE | 2017-02-04 06:53 | EKG ---
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
--- NOTE | 2017-02-04 07:15 | RAD ---
Portable chest, 02/04/2017: History: Chest pain Comparison is made to a study from 02/01/2017. The heart size and pulmonary vascularity are normal. No pulmonary infiltrate is seen. There is no evidence of pleural fluid. IMPRESSION: No acute cardiopulmonary abnormality is detected.
== END 2017-02-04 01:52 | disposition home or self-care (01) ==
LOC: ER 23:31
DX: J09.X2 Influenza due to identified novel influenza A virus with other respiratory manifestations (principal); R07.89 Other chest pain; M19.90 Unspecified osteoarthritis, unspecified site; M06.9 Rheumatoid arthritis, unspecified; Z86.73 Personal history of transient ischemic attack (TIA), and cerebral infarction without residual deficits; Z95.5 Presence of coronary angioplasty implant and graft; Z90.49 Acquired absence of other specified parts of digestive tract
CPT/HCPCS: 36415; 71010; 80048; 82553; 83880; 84484; 85027; 93005; 96374; 96375; 99285; J2270; J2405

== ENCOUNTER → 2017-05-07 | Outpatient (CLI) | payer MEDICARE, OTHER ==
[~2017-05-07] MED LIST changes: +ASPI-630 PO; -ASPI325T4 PO; +ASPI325T8 PO; -ASPI81TA2 PO; +HYDR-2678 PO; +PROM5SYR2 PO
--- NOTE | 2017-05-07 17:31 | KCIC ---
MRI of the cervical spine without contrast 05/07/2017 CLINICAL HISTORY: Neck pain with left arm weakness for the last 3 weeks. TECHNIQUE: Unenhanced T1-weighted, T2-weighted and inversion recovery sagittal and gradient echo and T2-weighted axial images of the cervical spine were obtained. FINDINGS: Minimal lateral curvature of the cervical spine is seen convex to the left. There is straightening of the normal cervical lordosis. Degenerative signal changes are seen involving all of the disks of the cervical spine. Loss of height of the C5-6 disc is noted. Degenerative signal changes are seen within the marrow surrounding this disc. No area of abnormal signal intensity is seen involving the cervical spinal cord. At the C2-3 disc space there is a minimal generalized disc bulge. Degenerative changes are seen involving the uncovertebral and facet joints bilaterally. These findings do not result in significant central spinal canal or neural foraminal stenosis. At the C3-4 disc space there is a mild generalized disc bulge. Degenerative changes are seen involving the uncovertebral and facet joints bilaterally. These findings efface the anterior and posterior CSF resulting in mild central spinal canal stenosis with very mild cord impingement. Moderate bilateral neural foraminal stenosis is seen. At the C4-5 disc space there is a mild generalized disc bulge. Superimposed on this disc bulge is a focal central disc protrusion. This measures 2 mm in AP diameter. Degenerative changes are seen involving the uncovertebral and facet joints, right greater than left. These findings when combined do not result in significant central spinal canal stenosis. Mild right neural foraminal stenosis is seen. The left neural foramen is patent. At the C5-6 disc space there is a moderate generalized disc bulge. Degenerative changes are seen involving the uncovertebral and facet joints bilaterally. These findings efface the anterior and posterior CSF resulting in mild central spinal canal stenosis without evidence of cord impingement. Moderate bilateral neural foraminal stenosis is seen. At the C6-7 disc space there is a minimal generalized disc bulge. Degenerative changes are seen involving the uncovertebral and facet joints bilaterally. These findings do not result in significant central spinal canal or neural foraminal stenosis. At the C7-T1 disc space there is a minimal generalized disc bulge. Degenerative changes are seen involving the uncovertebral and facet joints bilaterally. These findings when combined do not result in significant central spinal canal or neural foraminal stenosis. IMPRESSION: Degenerative changes are seen throughout the cervical spine. These findings result in mild central spinal canal stenosis with very mild cord impingement at C3-4 and mild central spinal canal stenosis at C5-6. Multilevel neural foraminal stenosis of varying severity is seen as outlined above. Electronically signed by: Juan Luis Blackman MD (05/07/2017 5:27 PM) [id number]
== END | disposition home or self-care (01) ==
LOC: KCIC MRI 14:26
PROVIDERS: ATTEND Family Medicine
DX: M50.30 Other cervical disc degeneration, unspecified cervical region (principal); M48.02 Spinal stenosis, cervical region; M99.53 Intervertebral disc stenosis of neural canal of lumbar region
CPT/HCPCS: 72141

== ENCOUNTER 2018-01-31 13:23 | Emergency (ER) | payer MEDICARE, OTHER | END 2018-01-31 15:10 | disposition home or self-care (01) | LOC: ER 13:23 | DX: J32.9 Chronic sinusitis, unspecified (principal); M06.9 Rheumatoid arthritis, unspecified; I25.2 Old myocardial infarction; Z95.5 Presence of coronary angioplasty implant and graft; Z86.73 Personal history of transient ischemic attack (TIA), and cerebral infarction without residual deficits | CPT/HCPCS: 99283 ==